=== PATIENT | female | born 1970 | race Caucasian/White ===

== ENCOUNTER 2017-01-17 00:49 | Emergency (ER) | payer SELFPAY ==
[~2017-01-17] VITALS: Ht 175.3 cm; Wt 95.5 kg
[~2017-01-17 00:49] MED LIST: ASPIR-MOX IB C325 MG PO; BAYER ASPIRIN325 MG PO; BENADRYL25 MG PO; DESYREL100 MG PO; DOK PLUS TABLE1 EACH PO; FIORICET 50-321 EAC1 PO; FIORICET,ESG1 TABLET PO; IRON325 MG PO; NAPROXEN500 MG PO; NEURONTIN100 MG PO; OMEPRAZOLE20 MG PO; OXYCODONE HCL5 MG PO; OXYCONTIN10 MG PO; PERCOCET 5-3251 EACH PO; PERCOCET 5/31 TABLET PO; TRAZODONE HCL100 MG PO; XARELTO10 MG PO
[2017-01-17 03:18] VITALS: BP 120/72
== END 2017-01-17 03:18 | disposition home or self-care (01) ==
LOC: EME 00:49
DX: G43.909 Migraine, unspecified, not intractable, without status migrainosus (principal); F44.9 Dissociative and conversion disorder, unspecified; Z86.73 Personal history of transient ischemic attack (TIA), and cerebral infarction without residual deficits; F17.200 Nicotine dependence, unspecified, uncomplicated
CPT/HCPCS: 99281; 99284; J2765; J7040